=== PATIENT | female | born 2000 | race Caucasian/White ===

== ENCOUNTER 2020-05-14 01:17 | Inpatient (IN) | payer BC ==
[~2020-05-14] VITALS: Ht 162.6 cm; Wt 64.8 kg
[2020-05-14 01:50] LABS: COLLECTION METHOD CLEAN CATCH
[2020-05-14 01:54] LABS: MEAN CELL VOLUME 88 fl (80.0-100.0); MEAN CORPUSCULAR HGB CONC 36 g/dl (33.0-37.0); MEAN PLATELET VOLUME 9.7 fl (7.4-10.4); PLATELET COUNT 254 K/mm3 (130-400); RED BLOOD COUNT 3.07 M/mm3 (4.10-5.30); REDCELL DISTRIBUTION WIDTH-CV 13.3 % (11.5-14.5)
[2020-05-14 01:58] LABS: HEMATOCRIT 26.9 % (37.0-47.0); HEMOGLOBIN 9.6 g/dl (12.5-16.0); MEAN CORPUSCULAR HEMOGLOBIN 31 pg (27.0-31.0)
[2020-05-14 02:00] LABS: MUCOUS Present /lpf; PH 6 (5-8); SQUAMOUS EPITHELIAL None Seen /hpf; URINE APPEARANCE Hazy; URINE BACTERIA Rare /hpf; URINE BILIRUBIN Negative (NEGATIVE); URINE BLOOD 1+ (NEGATIVE); URINE COLOR Yellow; URINE GLUCOSE Negative (NEGATIVE); URINE KETONE Negative (NEGATIVE); URINE LEUKOCYTE ESTERASE Trace (NEGATIVE); URINE NITRATE Negative (NEGATIVE); URINE PROTEIN(semi-quant) 1+ (NEGATIVE); URINE RBC 0-2 /hpf; URINE UROBILINOGEN Negative (NEGATIVE)
[2020-05-14 02:05] LABS: ALANINE AMINOTRANSFERASE 39 U/L (4-34); ALBUMIN 3.1 gm/dL (3.5-5.0); ALKALINE PHOSPHATASE 149 U/L (50-136); ANION GAP 12 mmol/L (7-16); AST,SGOT 58 U/L (15-37); BILIRUBIN,TOTAL 0.4 mg/dL (0.0-1.0); BLOOD UREA NITROGEN 13 mg/dL (7-17); CALCIUM 8.4 mg/dL (8.4-10.2); CARBON DIOXIDE 19 mmol/L (22-30); CHLORIDE 100 mmol/L (98-107); CREATININE, serum 1.06 (0.52-1.25); GLUCOSE 100 mg/dL (74-106); LIPASE 28 U/L (23-300); SODIUM 131 mmol/L (137-145); TOTAL PROTEIN 6.1 gm/dL (6.4-8.2)
[2020-05-14 02:07] LABS: AMYLASE < 30 U/L (30-110); POTASSIUM 2.7 mmol/L (3.4-5.0)
[2020-05-14 02:16] LABS: BAND 11 % (0-10); LYMPHOCYTE 5 % (20.0-51.0); NEUTROPHILS 83 % (42.0-75.2); PLATELET ESTIMATE NORMAL (NORMAL)
[2020-05-14 05:38] VITALS: BP 118/54; PULSE 95; TEMP 98.1
--- NOTE | 2020-05-14 06:29 | NUR ---
Patient up from ED via wheelchair. Patient oriented to room and call light. Admission and med rec done. Potassium infusing. Patient states she has some abdominal pain. Tylenol administered. No other needs at this time.
[2020-05-14 06:45] LABS: MEAN CELL VOLUME 91 fl (80.0-100.0); MEAN CORPUSCULAR HGB CONC 34 g/dl (33.0-37.0); PLATELET COUNT 226 K/mm3 (130-400); RED BLOOD COUNT 2.66 M/mm3 (4.10-5.30); REDCELL DISTRIBUTION WIDTH-CV 13.4 % (11.5-14.5)
[2020-05-14 06:53] LABS: HEMATOCRIT 24.1 % (37.0-47.0); HEMOGLOBIN 8.2 g/dl (12.5-16.0); MEAN CORPUSCULAR HEMOGLOBIN 31 pg (27.0-31.0)
[2020-05-14 06:57] LABS: ALBUMIN 2.5 gm/dL (3.5-5.0); BILIRUBIN,TOTAL 0.3 mg/dL (0.0-1.0); CALCIUM 7.6 mg/dL (8.4-10.2); CREATININE, serum 0.95 (0.52-1.25); TOTAL PROTEIN 5.2 gm/dL (6.4-8.2)
[2020-05-14 07:01] LABS: POTASSIUM 2.7 mmol/L (3.4-5.0)
[2020-05-14 07:58] LABS: BAND 37 % (0-10); LYMPHOCYTE 4 % (20.0-51.0); METAMYELOCYTE 1 % (0-0); NEUTROPHILS 55 % (42.0-75.2); PLATELET ESTIMATE NORMAL (NORMAL)
[2020-05-14 08:33] VITALS: BP 107/60; PULSE 98; TEMP 98.4
--- NOTE | 2020-05-14 09:48 | NUR ---
Initial visit; Cathleen thanked Dental Instrument Maker for looking in on her and offering God's blessings.
[2020-05-14 11:52] VITALS: BP 104/53; PULSE 102; TEMP 98.6
--- NOTE | 2020-05-14 12:00 | NUR ---
Patient has been doing well this morning. Denies nausea. Minimal complaints of pain. Encouraged patient to deep breathing exercises. Her friend has been helping her in the room. Replacing potassium as ordered. Slowed the rate because it was burning in her IV. No other changes at this time. Call light within reach.
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
[2020-05-14 15:52] VITALS: BP 113/70; PULSE 113; TEMP 99.4
--- NOTE | 2020-05-14 18:43 | NUR ---
Patient has been doing well this afternoon. Denies pain and nausea at this time. She had an elevated tempt his afternoon, tylenol give. Encouraged her to do deep breathing and coughing exercises. She has been voiding without issues. No complaints of nause this shift. Tolerating clear liquids well. No other changes at this time. Call light within reach.
--- NOTE | 2020-05-14 19:30 | NUR ---
Patient resting in bed with friend at bedisde. Potassium infusing. Will recheck potassium two hours after it is finished. PAtient is tolerating clear liquids with no nausea.
[2020-05-14 19:57] VITALS: BP 121/69; PULSE 95; TEMP 99.7
--- NOTE | 2020-05-14 21:43 | NUR ---
Patient mentioned that she often gets yeast infections while on antibiotics. SOMMER Thomas, ordered a probiotic for her.
[2020-05-14 23:31] VITALS: BP 116/66; PULSE 114; TEMP 98.9
--- NOTE | 2020-05-14 23:35 | NUR ---
Patient called with complaints of 8/10 pain in her stomach. Patient is shivering and said she was really cold. [place] administered and warm blanket provided.
[2020-05-15] VITALS (7 sets, daily range): BP systolic 110–130; BP diastolic 40–79; PULSE 68–118; TEMP 98.1–100
[2020-05-15 06:58] LABS: BASO % 0.3 % (0.0-2.0); EOS % 0.1 % (0-4.0); GRAN # 8.1 (1.4-6.5); GRAN % 72.5 % (42.2-75.2); LYMPH # 1.6 (1.2-3.4); MEAN CELL VOLUME 90 fl (80.0-100.0); MEAN CORPUSCULAR HGB CONC 34 g/dl (33.0-37.0); MEAN PLATELET VOLUME 9.9 fl (7.4-10.4); MONO # 1.3 (0.1-0.6); MONO % 11.8 % (1.7-9.3); PLATELET COUNT 239 K/mm3 (130-400); RED BLOOD COUNT 2.62 M/mm3 (4.10-5.30)
[2020-05-15 07:02] LABS: HEMATOCRIT 23.6 % (37.0-47.0); MEAN CORPUSCULAR HEMOGLOBIN 31 pg (27.0-31.0)
[2020-05-15 07:13] LABS: CALCIUM 7.7 mg/dL (8.4-10.2); CREATININE, serum 0.84 (0.52-1.25); POTASSIUM 3.3 mmol/L (3.4-5.0)
--- NOTE | 2020-05-15 09:29 | NUR ---
Follow-up visit; Patient thanked Board Machine Set Up Operator for checking on her again this morning and wishing her well and offering God's blessings.
--- NOTE | 2020-05-15 20:30 | NUR ---
Report received, assumed care for shutdown coordinator. Assessment complete. A&Ox3. C/O pain/nausea-no emesis. States she got up to go to the bathroom and had a wave of nausea followed by increase pain to right flank. JAY Palmer notified and new orders received for zofran-given at this time. Also given [place] per order post zofran. States she is having waves of chills. Vitals stable-afebrile. Plan of care discussed for this shift to include antibiotics/pain and nausea meds/IS and monitoring temp. Verbalizes understanding/denies quesitons/concerns. Call light in reach. Will monitor.
[2020-05-16 03:21] VITALS: BP 123/61; PULSE 94; TEMP 97.6
--- NOTE | 2020-05-16 05:52 | NUR ---
Called with c/o nausea. States she sat up for her lab draw and had a wave hit her. Priti given per dr to. Denies need for pain medication. Has been afebrile this shift. Denies any other questions/concerns. Call light in reach. Will monitor.
[2020-05-16 06:25] LABS: MEAN CELL VOLUME 91 fl (80.0-100.0); MEAN CORPUSCULAR HGB CONC 34 g/dl (33.0-37.0); MEAN PLATELET VOLUME 9.5 fl (7.4-10.4); PLATELET COUNT 248 K/mm3 (130-400)
[2020-05-16 06:26] LABS: HEMATOCRIT 24.5 % (37.0-47.0); HEMOGLOBIN 8.3 g/dl (12.5-16.0); MEAN CORPUSCULAR HEMOGLOBIN 31 pg (27.0-31.0)
[2020-05-16 06:40] LABS: ALBUMIN 2.5 gm/dL (3.5-5.0); BILIRUBIN,TOTAL 0.2 mg/dL (0.0-1.0); CALCIUM 7.8 mg/dL (8.4-10.2); CREATININE, serum 0.8 (0.52-1.25); POTASSIUM 3.6 mmol/L (3.4-5.0); TOTAL PROTEIN 5.4 gm/dL (6.4-8.2)
[2020-05-16 07:10] LABS: ANISOCYTOSIS 1+; BAND 18 % (0-10); HYPOCHROMIA 1+; LYMPHOCYTE 16 % (20.0-51.0); MYELOCYTE 3 % (0-0); NEUTROPHILS 55 % (42.0-75.2); PLATELET ESTIMATE NORMAL (NORMAL)
--- NOTE | 2020-05-16 07:15 | NUR ---
Lying in bed with eyes closed. Opens eyes when name called out. Alert and oriented x4. Rates pain 7/10 in right flank, low back, lower abd. Patient is febrile, will review meds and administer medication for fever. Patient says that her nausea is okay at this time. Denies additional needs.
[2020-05-16 07:17] VITALS: BP 105/53; PULSE 100; TEMP 101
--- NOTE | 2020-05-16 09:12 | NUR ---
Follow-up visit attempt; Patient indisposed, Laboratory Courier left card offering God's Blessings.
[2020-05-16 09:17] VITALS: TEMP 98.3
[2020-05-16 11:01] VITALS: BP 111/51; PULSE 78; TEMP 97.8
--- NOTE | 2020-05-16 11:50 | NUR ---
Urine Culture & Sensitivity report return this date indicating causative organism to be Eschericha coli (ESBL). Patient placed in contact precautions. Contact precautions to be in place until resolution of symptoms and completion of antibiotic regimen.
--- NOTE | 2020-05-16 13:37 | NUR ---
SW attended clinical rounds. The patient's urine grew ESBL E coli. The patient is to have a PICC line placed. ID is to be consulted. The patient may need outpatient IV antibiotics. SW to continue to follow.
--- NOTE | 2020-05-16 14:19 | NUR ---
Receive call from tele that the patient was in v-tach and having increasing heart rate. Anne Marie RN, goes in room and patient lying in bed without any complaints. RT in room to perform EKG. Dr. Fleming updated. No new orders at this time. Tele at this time is sinus rhythm heart rate 70-80's.
--- NOTE | 2020-05-16 14:50 | NUR ---
Sitting up in bed visiting with friend at bedside. Patient says that she is feeling okay at this time. Now has PICC to right upper arm. Denies pain or nausea. Patient has questions regarding condition. Answer as able. Patient also curious if she would be able to set up OP antibiotic therapy in [place] so that she can stay with family. Explain that I would discuss that further with social samia Munoz, to see if that can be arranged. Discuss with the patient ID consult and we will need to know from that provider POC. Patient verbalizes understanding and denies additional needs at this time. social samia Munoz, updated.
--- NOTE | 2020-05-16 15:03 | NUR ---
The patient's RN notified VANESA that the patient had questions about how she would obtain the IV antibiotics. VANESA then met with the patient and her friend, Joann, to discuss the IV antibiotics. The patient states that she will be staying here in [place] and returning back to her place. VANESA discussed antibiotics at home vs outpatient in the [facility]. The patient states that it would be easier to receive them in the [facility]. Awaiting ID recs.
[2020-05-16 16:11] VITALS: BP 105/65; PULSE 83; TEMP 97.6
--- NOTE | 2020-05-16 16:11 | NUR ---
Lying in bed with eyes open. WHen asked how she is doing patient says that she feels "puny". Rates pain in low abd and back 5/10, declines pain medication at this time but will let me know if she needs it. Friend remains at bedside with patient. Denies additional needs at this time.
--- NOTE | 2020-05-16 16:47 | NUR ---
Patient starting to have increase in pain and would like pain medication. Administer [place] as prescribed. Patient resting in bed. Friend in room with the patient. Denies additional needs.
[2020-05-16 20:31] VITALS: BP 117/60; PULSE 87; TEMP 98.4
[2020-05-17 00:20] VITALS: BP 121/67; PULSE 108; TEMP 101.8
[2020-05-17 04:26] VITALS: BP 97/61; PULSE 84; TEMP 98.2
--- NOTE | 2020-05-17 05:50 | NUR ---
Patient did well throughout the shift. PRN [place] for pain and zofran for nausea. PICC to right upper arm. No additional need at this time.
[2020-05-17 06:13] LABS: MEAN CELL VOLUME 93 fl (80.0-100.0); MEAN CORPUSCULAR HGB CONC 33 g/dl (33.0-37.0); MEAN PLATELET VOLUME 9.1 fl (7.4-10.4); PLATELET COUNT 252 K/mm3 (130-400); RED BLOOD COUNT 2.64 M/mm3 (4.10-5.30); REDCELL DISTRIBUTION WIDTH-CV 13.8 % (11.5-14.5)
[2020-05-17 06:19] LABS: CALCIUM 7.8 mg/dL (8.4-10.2); CREATININE, serum 0.62 (0.52-1.25); POTASSIUM 3.5 mmol/L (3.4-5.0)
[2020-05-17 06:24] LABS: HEMATOCRIT 24.6 % (37.0-47.0); MEAN CORPUSCULAR HEMOGLOBIN 30 pg (27.0-31.0)
[2020-05-17 07:16] LABS: EOSINOPHIL 1 % (0-4); LYMPHOCYTE 11 % (20.0-51.0); METAMYELOCYTE 1 % (0-0); NEUTROPHILS 75 % (42.0-75.2)
[2020-05-17 07:17] LABS: HYPOCHROMIA 1+; PLATELET ESTIMATE NORMAL (NORMAL)
[2020-05-17 08:00] VITALS: BP 105/55; PULSE 79; TEMP 97.8
--- NOTE | 2020-05-17 08:16 | NUR ---
Lying in bed with eyes closed. Opens eyes when enter room. Denies pain or nausea. Still is tired and wants to sleep. Denies needs at this time.
--- NOTE | 2020-05-17 09:54 | NUR ---
Discuss process for obtaining FHT. Obtain at this time with FHR 155. Patient tolerates okay. Discuss baby ASA with patient. Patient resting in bed at this time. Denies additional needs or concerns.
--- NOTE | 2020-05-17 10:42 | NUR ---
ID is recommending IV Invanz, once a day for a total of 7 days. The patient received her first does yesterday. The patient's PA notified VANESA that the patient may be able to d/c tomorrow, 05/18. The patient would then start the IV antibiotics in the [facility] on Wednesday. VANESA notified gusset ripper, Claire, for prior auth. VANESA contacted Chaparrita in the [facility]. Chaparrita requests orders. Fax# to the express unit is [phone]. Chaparrita reports that the patient's appointment in the express will be at 0830 on Wednesday. VANESA met with the patient to update. The patient verbalized understanding and states she will come at that time. VANESA will need to fax the patient's orders to the express unit.
--- NOTE | 2020-05-17 11:07 | NUR ---
The patient's mother, Cathy, returned VNAESA's phone call. Cathy states that she is on her way up to the hospital to visit the patient. VANESA updated her about the IV antibiotics. Cathy was agreeable to the plan.
[2020-05-17 11:15] VITALS: BP 114/66; PULSE 76; TEMP 98.2
--- NOTE | 2020-05-17 13:54 | NUR ---
Predetermination form faxed to [facility] for Invanz IV in [facility]. Copy of form given to [facility], awaiting orders upon discharge.
--- NOTE | 2020-05-17 15:42 | NUR ---
Claire, culture media laboratory assistant, reports that she is still waiting to hear back from insurance on auth. She states that we may not get auth until Wednesday. VANESA notified Chaparrita in the [facility]. Chaparrita reprots that they will still be able to continue care and be able to administer the IV antibiotic to the patient on Wednesday, if she does d/c on Wednesday. VANESA will need to fax the patient's d/c orders and script for the IV Invanz to the [facility].
[2020-05-17 15:58] VITALS: BP 118/65; PULSE 85; TEMP 98.2
--- NOTE | 2020-05-17 16:00 | NUR ---
Lying in bed with eyes open texting on cell phone. Denies pain. Says that she is having some nausea. Offer medication and patient declines at this time. Explain if she changes her mind to let us know. Patient says that her mother will be coming up in a little bit. Denies additional needs at this time.
--- NOTE | 2020-05-17 17:25 | NUR ---
Lying in bed talking with mother at bedside. Patient says that she has ordered dinner. Denies additional needs or concerns at this time.
[2020-05-17 19:37] VITALS: BP 117/56; PULSE 90; TEMP 98
[2020-05-18 00:11] VITALS: BP 125/60; PULSE 83; TEMP 98.7
[2020-05-18 04:47] VITALS: BP 114/59; PULSE 102; TEMP 99.4
[2020-05-18 05:56] LABS: MEAN CELL VOLUME 92 fl (80.0-100.0); MEAN CORPUSCULAR HGB CONC 33 g/dl (33.0-37.0); RED BLOOD COUNT 3.07 M/mm3 (4.10-5.30); REDCELL DISTRIBUTION WIDTH-CV 13.3 % (11.5-14.5)
[2020-05-18 06:10] LABS: HEMATOCRIT 28.3 % (37.0-47.0); HEMOGLOBIN 9.4 g/dl (12.5-16.0); MEAN CORPUSCULAR HEMOGLOBIN 31 pg (27.0-31.0); PLATELET COUNT 361 K/mm3 (130-400)
[2020-05-18 06:13] LABS: CALCIUM 8.3 mg/dL (8.4-10.2); CREATININE, serum 0.57 (0.52-1.25); POTASSIUM 4.1 mmol/L (3.4-5.0)
[2020-05-18 06:52] LABS: BAND 1 % (0-10); LYMPHOCYTE 22 % (20.0-51.0); NEUTROPHILS 71 % (42.0-75.2); PLATELET ESTIMATE NORMAL (NORMAL)
[2020-05-18 07:47] VITALS: BP 114/56; PULSE 101; TEMP 99.2
[2020-05-18] MEDS ORDERED: INVANZ INJ1 G/VIAL IV (08:50)
[2020-05-18] MEDS ORDERED: CLASSIC PRENATAL PO (08:51)
[2020-05-18] MEDS ORDERED: ASPIRIN 81M81 MG/TA2 PO (08:51)
[2020-05-18] MEDS ORDERED: MACROBID 1100 MG/CAP PO ×2 (09:50→09:52)
--- NOTE | 2020-05-18 10:08 | NUR ---
SW update faxed orders to [phone] orders and scripts. Nothing follows.
--- NOTE | 2020-05-18 12:15 | NUR ---
Pt resting with eyes closed, even non labored breathing. Pts mother is in the room at bedside. Informed her to notify nursing when she wakes and is ready to go home and I would review paperwork with her. No other needs, will continue to monitor
--- NOTE | 2020-05-18 14:00 | NUR ---
Reviewed discharge instructions with patient to include medications and follow up appointments as well as PICC line care. Telemetry called and informed of patient's discharge. Informed pt to use call light so that she can be walked out.
[2020-05-19] MEDS ORDERED: DIFLUCAN150 MG PO (10:56)
== END 2020-05-18 14:49 | disposition home or self-care (01) | DRG 831 ==
LOC: COL.ER 01:17 → SURG 03:32
PROVIDERS: Family Medicine; Hospitalist; Physician Assistant; Student in an Organized Health Care Education/Training Program; ADMIT Internal Medicine
PROC: 02HV33Z Insertion of Infusion Device into Superior Vena Cava, Percutaneous Approach (ICD-10-PCS; principal; 2020-05-16)
DX: O98.811 Other maternal infectious and parasitic diseases complicating pregnancy, first trimester (principal); A41.51 Sepsis due to Escherichia coli [E. coli]; O23.01 Infections of kidney in pregnancy, first trimester; N12 Tubulo-interstitial nephritis, not specified as acute or chronic; O99.281 Endocrine, nutritional and metabolic diseases complicating pregnancy, first trimester; O99.011 Anemia complicating pregnancy, first trimester; D64.9 Anemia, unspecified; E87.6 Hypokalemia; K59.00 Constipation, unspecified; O99.611 Diseases of the digestive system complicating pregnancy, first trimester; R74.01 Elevation of levels of liver transaminase levels
CPT/HCPCS: 99222-AI; 99232-AI; 99239; C1751; J0696; J1335; J2405; J3480; J7030; J7120

== ENCOUNTER 2020-05-25 08:30 | Outpatient (RCR) | payer BC ==
[2020-05-19 09:39] VITALS: BP 98/63; PULSE 97; TEMP 98.3
[2020-05-20 11:51] VITALS: BP 98/65; PULSE 90; TEMP 98
[2020-05-21 09:25] VITALS: BP 105/66; PULSE 90; TEMP 98.3
[2020-05-22 09:25] VITALS: BP 100/68; PULSE 88; TEMP 98.4
[2020-05-23 09:27] VITALS: BP 99/64; PULSE 86; TEMP 98.5
[2020-05-24 09:14] VITALS: BP 105/72; PULSE 88; TEMP 97.9
[~2020-05-25] VITALS: Ht 162.6 cm; Wt 59.3 kg
[2020-05-25 08:20] VITALS: BP 99/66; PULSE 82; TEMP 97.4
[~2020-05-25 08:30] MED LIST: ASPIRIN 81M81 MG/TA2 PO; CLASSIC PRENATAL PO; DIFLUCAN150 MG PO; INVANZ INJ1 G/VIAL IV; MACROBID 1100 MG/CAP PO
== END 2020-05-25 09:02 | disposition home or self-care (01) ==
LOC: EUO 08:30
DX: Z95.9 Presence of cardiac and vascular implant and graft, unspecified (principal)
CPT/HCPCS: J1335